=== PATIENT | female | born 1960 | race Two or more races ===

== ENCOUNTER 2018-07-08 15:29 | Emergency (ER) | payer OTHER ==
[~2018-07-08] VITALS: Ht 160 cm; Wt 99.3 kg
[2018-07-08] MEDS ORDERED: COZAAR100 MG (16:00)
[2018-07-08] MEDS ORDERED: TOPROL XL100 M1 (16:01)
[2018-07-08] MEDS ORDERED: NORVASC5 MG (16:01)
== END 2018-07-08 23:20 | disposition home or self-care (01) ==
LOC: ER 15:29
DX: K52.9 Noninfective gastroenteritis and colitis, unspecified (principal)